=== PATIENT | female | born 1995 | race Caucasian/White ===

== ENCOUNTER 2018-03-05 11:50 | Emergency (ER) | payer OTHER ==
[2018-03-05] MEDS ORDERED: NS 1,000 ML IV ONE (12:36)
--- NOTE | 2018-03-05 12:36 | EDPHY ---
H & P Stated Complaint: Near syncope at playground, no trauma, no Hx, sore throat this AM Time Seen by Provider: 03/05/18 12:35 HPI/ROS: CHIEF COMPLAINT: [ ] HISTORY OF PRESENT ILLNESS: [Need 4: Location, Duration, Severity, Quality, Context, Timing Modifying Factors, Associated S&S] REVIEW OF SYSTEMS: A comprehensive 10 point review of systems is otherwise negative aside from elements mentioned in the history of present illness. Source: Patient - Personal History Current Tetanus/Diphtheria Vaccine: Yes - Medical/Surgical History Hx Asthma: No Hx Chronic Respiratory Disease: No Hx Diabetes: No Hx Cardiac Disease: No Hx Renal Disease: No Hx Cirrhosis: No Hx Alcoholism: No Hx HIV/AIDS: No Hx Splenectomy or Spleen Trauma: No Other PMH: , bipolar - Social History Smoking Status: Never smoked - Physical Exam Exam: General Appearance: [Alert, no distress] Head: [Atraumatic] Eyes: [Pupils equal, round, reactive] ENT, Mouth: [No hemotympanum, no oral trauma] Neck: [Nontender, trachea midline] Respiratory: [No chest wall tender, subcutaneous air, lungs clear bilaterally] Cardiovascular: [Regular rate and rhythm] Abdomen: [Abdomen is soft and nontender, pelvis stable] Skin: [No lacerations, No abrasion] Back: [No midline T/L/S pain] Extremities: [Nontender, full range of motion] Neurological: [A&Ox3, normal motor function, normal sensory exam] Constitutional: Initial Vital Signs Temperature (C) 36.8 C 03/05/18 11:56 Heart Rate 87 03/05/18 11:56 Respiratory Rate 16 03/05/18 11:56 Blood Pressure 122/77 H 03/05/18 11:56 O2 Sat (%) 98 03/05/18 11:56 O2 Delivery Mode Room Air Allergies/Adverse Reactions: Penicillins Allergy (Verified 03/05/18 11:54) Home Medications: Medication Instructions Recorded Latuda 03/05/18 Zoloft 50mg (*) 03/05/18 Departure - Departure Condition: Fair Referrals: NONE *PRIMARY CARE P,. [Primary Care Provider] - As per Instructions
[2018-03-05 12:45] LABS: PLATELET COUNT 160 10^3/uL (150-400)
[2018-03-05] MEDS ORDERED: ACETAMINOPHEN 500 MG TAB PO ONE (13:10)
--- NOTE | 2018-03-05 13:41 | CPEKG ---
Test Reason : OPEN Blood Pressure : / mmHG Vent. Rate : 092 BPM Atrial Rate : 095 BPM P-R Int : 166 ms QRS Dur : 087 ms QT Int : 331 ms P-R-T Axes : 052 051 012 degrees QTc Int : 410 ms Sinus rhythm Confirmed by Ron Peralta ([id number]) on 03/05/2018 1:40:57 PM Referred By: Confirmed By:Ron Peralta
--- NOTE | 2018-03-05 13:52 | EDPHY ---
H & P Stated Complaint: Near syncope at playground, no trauma, no Hx, sore throat this AM Source: Patient - Personal History LMP (Females 10-55): Now Current Tetanus/Diphtheria Vaccine: Yes - Medical/Surgical History Hx Asthma: No Hx Chronic Respiratory Disease: No Hx Diabetes: No Hx Cardiac Disease: No Hx Renal Disease: No Hx Cirrhosis: No Hx Alcoholism: No Hx HIV/AIDS: No Hx Splenectomy or Spleen Trauma: No Other PMH: , bipolar - Social History Smoking Status: Never smoked Alcohol Use: None Drug Use: None Time Seen by Provider: 03/05/18 12:35 HPI/ROS: CHIEF COMPLAINT: Dizziness, lightheadedness HISTORY OF PRESENT ILLNESS: This is a healthy 22-year-old female presents to the emergency department where she is complaining of dizziness and lightheadedness. Patient reports she was at a playground this morning with her child and suddenly felt cold, nauseous and dizzy. She states she had to lower herself to the floor. She did not actually pass out or hit her head. No recent illness, fever, chills, URI symptoms, abdominal pain nausea or vomiting. She denies . She had breakfast this morning and has had some water but not a lot. No reported past history of syncopal episodes. No personal or family history of congenital heart abnormalities or arrhythmia. She denies headache, vertigo, nausea and vomiting. Her only complaint on my evaluation is "I am cold". REVIEW OF SYSTEMS: Constitutional: No fever, no chills. Eyes: No discharge, vision change ENT: No sore throat, congestion, ear pain. Cardiovascular: No chest pain, no palpitations. Respiratory: No cough, no shortness of breath. Gastrointestinal: No abdominal pain, no vomiting, diarrhea. Genitourinary: No hematuria, dysuria, flank pain Musculoskeletal: No back pain. Skin: No rashes. Neurological: No headache, weakness. PHYSICAL EXAM: General Appearance: Alert, oriented, appropriate, cooperative, NAD, well hydrated, non-toxic appearing, VSS, no hypoxia. HEENT TMs are clear bilaterally no perforation or FB, no injection, no evidence of serous or mucopurulent otitis. Oropharynx clear is no erythema or exudates, no tonsillar hypertrophy or asymmetry. Dentition without abnormality. Eyes: PERRLA, no subjective vision change, diplopia, nystagmus, swelling, discharge, pain or photosensitivity. Conjuctiva pink, no pallor or injection Neck: Supple, nontender, no lymphadenopathy, no midline pain, FROM, no meningismus. Respiratory: There are no retractions, lungs are clear to auscultation. Cardiac: Regular rate and rhythm, no murmurs or gallops. Gastrointestinal: Abdomen is soft, nontender, bowel sounds normal, no masses/ hernia, no rigidity, guarding or focal peritoneal findings. Neurological: Alert and oriented x 3, CN 2-12 grossly intact, normal gait no ataxia, DTR's intact, normal sensation Skin: Warm, dry, no rashes, no nodules on palpation. Musculoskeletal: extremities are symmetrical, full range of motion, no tenderness, deformity, swelling, or erythema. Psychiatric: Patient is oriented X 3, there is no agitation. (Tai Alvares) Constitutional: Initial Vital Signs Temperature (C) 36.8 C 03/05/18 11:56 Heart Rate 87 03/05/18 11:56 Respiratory Rate 16 03/05/18 11:56 Blood Pressure 122/77 H 03/05/18 11:56 O2 Sat (%) 98 03/05/18 11:56 O2 Delivery Mode Room Air Allergies/Adverse Reactions: Penicillins Allergy (Verified 03/05/18 11:54) Home Medications: Medication Instructions Recorded Latuda 03/05/18 Zoloft 50mg (*) 03/05/18 Medical Decision Making - Diagnostics EKG Interpretation: EKG read and interpreted by Dr. Ron Peralta, please see his interpretation ( Tai Alvares) EKG: Complete interpretation has been separately recorded in the [email or web address] archive. Summary impression: Sinus rhythm, rate 92 (Ron Peralta) ED Course/Re-evaluation: Patient was seen independently according to established practice protocols. Secondary attending physician at time of evaluation was Dr. Peralta [id number]: Patient reassessed, her only complaint at this time is"feeling cold". Vitals remained stable, alert, oriented. Labs are reassuring, no electrolyte imbalance, renal insufficiency, . EKG read interpreted by the ED attending, no acute arrhythmia, Brugada or WPW. Will p.o. Challenge, road test and plan to DC home. This is a healthy 22-year-old female presents to the emergency department after a near syncopal episode today while at the playground with her son. Patient is alert, oriented, with no focal neurological deficits on exam, stable vital signs , no hypoxia. Labs are reassuring, no electrolyte imbalance, renal insufficiency, leukocytosis, or . EKG reassuring, no arrhythmia, Brugada or WPW. She tolerated an oral challenge well and road tested without difficulty. Suspect vasovagal syncope. Encouraged PCP recheck, home care discussed, warnings and return here sooner on discharge (Tai Alvares) Differential Diagnosis: Differential diagnosis includes but not limited to vasovagal syncope, dehydration, , hypoglycemia, electrolyte imbalance, cardiac arrhythmia , toxidrome (Tai Alvares) Other Provider: PHYSICIAN DOCUMENTATION: The patient was evaluated and managed by the [employer] [employer]. My co- signature indicates that I have reviewed this chart and I agree with the findings and plan of care as documented. I am the secondary supervising physician. (Ron Peralta) - Data Points Laboratory Results: Laboratory Results 03/05/18 12:32 03/05/18 12:32 03/05/18 03/05/18 03/05/18 12:32 12:32 12:32 WBC 7.99 10^3/uL 10^3/uL (3.80-9.50) RBC 3.81 10^6/uL L 10^6/uL (4.18-5.33) Hgb 12.3 g/dL L g/dL (12.6-16.3) Hct 35.9 % L % (38.0-47.0) MCV 94.2 fL fL (81.5-99.8) MCH 32.3 pg pg (27.9-34.1) MCHC 34.3 g/dL g/dL (32.4-36.7) RDW 13.1 % % (11.5-15.2) Plt Count 160 10^3/uL 10^3/uL (150-400) MPV 11.9 fL H fL (8.7-11.7) Neut % (Auto) 86.8 % H % (39.3-74.2) Lymph % (Auto) 6.4 % L % (15.0-45.0) [place] % (Auto) 5.8 % % (4.5-13.0) Eos % (Auto) 0.4 % L % (0.6-7.6) Baso % (Auto) 0.3 % % (0.3-1.7) Nucleat RBC Rel Count 0.0 % % (0.0-0.2) Absolute Neuts (auto) 6.94 10^3/uL H 10^3/uL (1.70-6.50) Absolute Lymphs (auto) 0.51 10^3/uL L 10^3/uL (1.00-3.00) Absolute Monos (auto) 0.46 10^3/uL 10^3/uL (0.30-0.80) Absolute Eos (auto) 0.03 10^3/uL 10^3/uL (0.03-0.40) Absolute Basos (auto) 0.02 10^3/uL 10^3/uL (0.02-0.10) Absolute Nucleated RBC 0.00 10^3/uL 10^3/uL (0-0.01) Immature Gran % 0.3 % % (0.0-1.1) Immature Gran # 0.02 10^3/uL 10^3/uL (0.00-0.10) RBC/WBC/PLT Morphology TNP Platelet Estimate TNP Sodium 138 mEq/L mEq/L (135-145) Potassium 3.7 mEq/L mEq/L (3.3-5.0) Chloride 103 mEq/L mEq/L (97-110) Carbon Dioxide 27 mEq/l mEq/l (22-31) Anion Gap 8 mEq/L mEq/L (6-14) BUN 13 mg/dL mg/dL (7-23) Creatinine 0.6 mg/dL mg/dL (0.6-1.0) Estimated GFR > 60 Glucose 89 mg/dL mg/dL (70-100) Calcium 9.2 mg/dL mg/dL (8.5-10.4) Beta HCG, Qual NEGATIVE Medications Given: Discontinued Medications Acetaminophen (Tylenol) 1,000 mg PO EDNOW ONE Stop: 03/05/18 13:11 Last Admin: 03/05/18 13:15 Dose: 1,000 mg Sodium Chloride (Ns) 1,000 mls @ 0 mls/hr IV EDNOW ONE; Wide Open PRN Reason: Protocol Stop: 03/05/18 12:37 Last Admin: 03/05/18 12:46 Dose: 1,000 mls Departure - Departure Disposition: Home, Routine, Self-Care Clinical Impression: Vasovagal near syncope Condition: Good Instructions: Syncope (ED) Additional Instructions: Your lab work was reassuring, no abnormalities found on her EKG, you are not . Vitals are stable. This may have been vasovagal syncope. We recommend follow up with her primary care doctor. Please see regular meals, stay well hydrated and get plenty of rest. Return to the emergency department sooner for recurrence syncope, chest pain, shortness of breath, dizziness, fevers greater than 100.4, or any other concerns. Referrals: NONE *PRIMARY CARE P,. [Primary Care Provider] - As per Instructions Mone Villegas MD [Medical Doctor] - As per Instructions
[2018-03-05 14:17] VITALS: BP 119/80
== END 2018-03-05 14:17 | disposition home or self-care (01) ==
DX: R55 Syncope and collapse (principal); E86.9 Volume depletion, unspecified